=== PATIENT | female | born 1975 | race Caucasian/White ===

== ENCOUNTER 2019-06-06 14:19 | Outpatient (CLI) | payer MEDICAID, SELFPAY ==
[2019-06-06 14:52] LABS: HCT 40.5 % (36.0-46.0); HGB 13.5 g/dL (12.0-15.5); Mean Corp. HGB Concentration 33.3 g/dL (32.0-36.0); Mean Corpuscular Hemoglobin 30.9 pg (27.0-33.0); Mean Corpuscular Volume 92.7 fL (80-95); Platelet Count 294 x1000/uL (130-400); RBC 4.37 m/cumm (4.00-5.20); RBC Distribution Width 12.8 % (11.7-14.6); White Blood Cell Count 10.46 k/cumm (4.4-10.8)
[2019-06-06 15:52] LABS: ALT 23 U/L (14-59); AST 14 U/L (15-37); Alkaline Phosphatase 67 U/L (46-116); Anion Gap 11.3 mmol/L (3-11); BUN 15 mg/dL (7-18); Bilirubin, Total 0.5 mg/dL (0.2-1.0); CO2 25.7 mmol/L (21.0-32.0); CREATININE 1.01 mg/dL (0.55-1.02); Calcium 9.3 mg/dL (8.5-10.1); Chloride 103 mmol/L (98-107); Glucose 81 mg/dL (70-100); Lipase 105 U/L (73-393); Potassium 3.9 mmol/L (3.5-5.1); Sodium 140 mmol/L (136-145); Total Protein 7.7 g/dL (6.4-8.2)
== END 2019-06-06 14:39 ==
PROVIDERS: PCP Nurse Practitioner; Visit Provider Nurse Practitioner
DX: R10.12 Left upper quadrant pain (principal); R10.9 Unspecified abdominal pain
CPT/HCPCS: 36415; 80053; 83690; 85027

== ENCOUNTER 2019-06-07 00:58 | Outpatient (CLI) | payer MEDICAID, SELFPAY ==
--- NOTE | 2019-06-07 10:03 | DI.RAD_ITS ---
SYMPTOM/DIAGNOSIS: LUQ PAIN R10.9, ABD PAIN R10.12, LUQ PAIN ABDOMEN: 06/07 The bowel gas pattern is normal. The abdominal fat planes are well defined and appear intact. There is no evidence of organomegaly or an intra-abdominal mass. No evidence of abnormal intra-abdominal calcification is seen. CONCLUSION: Normal abdomen.
--- NOTE | 2019-06-07 10:23 | DI.US_ITS ---
SYMPTOM/DIAGNOSIS: LUQ PAIN, ABD PAIN R10.9, R10.12 LUQ PAIN ABDOMINAL ULTRASOUND: 06/07 The visualized liver parenchyma is normal in appearance. There is no evidence of cholelithiasis or biliary dilatation. Kidneys are normal in appearance with no evidence of hydronephrosis or nephrolithiasis. Pancreas appears intact as visualized. Abdominal aorta and IVC are of normal diameter. Spleen appears intact. CONCLUSION: Negative abdominal ultrasound.
== END 2019-06-07 01:18 ==
PROVIDERS: PCP Nurse Practitioner; Visit Provider Nurse Practitioner
DX: R10.12 Left upper quadrant pain (principal)
CPT/HCPCS: 74019; 76700

== ENCOUNTER 2019-06-11 10:57 | Outpatient (CLI) | payer MEDICAID, SELFPAY ==
--- NOTE | 2019-06-11 11:15 | DI.RAD_ITS ---
SYMPTOMS/DIAGNOSIS: CHEST PAIN, R07.89, LT SIDED CHEST WALL PAIN PA AND LATERAL CHEST AND LEFT RIBS: The lungs are well expanded and free of infiltrate. There is no pleural effusion. The cardiovascular structures are intact. A left rib series reveals no evidence of a right fracture or other bony abnormality.
== END 2019-06-11 11:17 ==
PROVIDERS: PCP Nurse Practitioner; Visit Provider Nurse Practitioner
DX: R07.89 Other chest pain (principal); R49.0 Dysphonia; R07.0 Pain in throat
CPT/HCPCS: 71046; 71100; 87070